=== PATIENT | female | born 1940 | race Caucasian/White ===

== ENCOUNTER 2017-04-13 09:24 | Emergency (ER) | payer MEDICARE, OTHER ==
--- NOTE | 2017-04-13 11:21 | RAD ---
INDICATION: Atraumatic left wrist and swelling COMPARISON: None TECHNIQUE: AP, lateral, and oblique views were obtained. FINDINGS: There is no acute bony change. There is advanced osteoarthritis about the first carpometacarpal articulation with deformity. There is minor radiocarpal osteoarthritis. There is underlying soft tissue swelling. IMPRESSION: ADVANCED OSTEOARTHRITIS FIRST CARPOMETACARPAL ARTICULATION. NO ACUTE BONY CHANGES. SOFT TISSUE SWELLING.
[2017-04-13 11:40] VITALS: BP 199/85
[2017-04-13] MEDS ORDERED: Ibuprofen TAB* 600 MG PO ONE (11:50)
--- NOTE | 2017-04-13 11:53 | UC ---
Janes Hernandez Thomas, [facility] on 04/13/17 at 1050 . Upper Extremity HPI - HPI Summary HPI Summary: The pt is a 76 y/o F presenting to [facility] c/o left wrist pain that began today when she woke at 03:00. The pain is described as a deep ache. It radiates to her fingers and the pain si rated 9/10. The pain is aggravated by palpation and movement. It is alleviated by nothing. The patient has treated the pain with nothing [employer]. She has a previous fracture of the right wrist but not the left. Pt additionally c/o left wrist swelling. PMHx: HTN, arthritis. SHx: former smoker, daily alcohol use. She is left-handed. MD Note: Left wrist pain. 160/98. VS Stable. Patient is on BP medication. Visit history is significant for arthritis. Nurses Note: Woke up at 3 am with left wrist pain. Did not fall or have an other injury. - History of Current Complaint Chief Complaint: UCUpperExtremity Stated Complaint: WRIST PAIN Time Seen by Provider: 04/13/17 10:42 Hx Obtained From: Patient Onset/Duration: Lasting Hours - sudden onset today at 03:00 when she woke, Still Present Pain Intensity: 9 Pain Scale Used: 0-10 Numeric Aggravating Factor(s): Movement - and palpation Alleviating Factor(s): Nothing Associated Signs And Symptoms: Positive: Swelling - to left wrist. Negative: Fever Related History: Dominant Hand Left - Allergies/Home Medications Allergies/Adverse Reactions: Allergies Allergy/AdvReac Type Severity Reaction Status Date / Time Amoxicillin Allergy Hives Verified 04/13/17 10:03 Ampicillin Allergy Hives Verified 04/13/17 10:03 PMH/Surg Hx/FS Hx/Imm Hx Previously Healthy: No - Arthritis Cardiovascular History: Hypertension - Surgical History Surgical History: Yes Surgery Procedure, Year, and Place: 2010 BILATERAL CATARACT SURGERY [facility]. 2007 RIGHT SHOULDER IMPLANT [facility]. 2000 RIGHT HAND TRIGGER FINGER [facility]. BIL[facility]. RIGHT FOOT - Family History Known Family History: Positive: Cardiac Disease, Hypertension - Social History Alcohol Use: Daily Alcohol Amount: 1-2 DRINKS PER DAY Substance Use Type: None Smoking Status (MU): Former Smoker Amount Used/How Often: 1 1/2 PPD X 5 YEARS When Did the Patient Quit Smoking/Using Tobacco: 1971 - Immunization History Most Recent Influenza Vaccination: 2011 Most Recent Tetanus Shot: 2009 Review of Systems Constitutional: Negative, Other - NEGATIVE: fever Skin: Negative Eyes: Negative ENT: Negative Respiratory: Negative Cardiovascular: Negative Gastrointestinal: Negative Genitourinary: Negative Motor: Negative Neurovascular: Negative Musculoskeletal: Other: - POS: left wrist pain onset this AM at 03:00, swelling to left wrist. Neurological: Negative Psychological: Negative All Other Systems Reviewed And Are Negative: Yes Physical Exam Triage Information Reviewed: Yes Vital Signs: Initial Vital Signs Temp 97.2 F 04/13/17 09:58 Pulse 79 04/13/17 09:58 Resp 22 04/13/17 09:58 BP 160/98 04/13/17 09:58 Pulse Ox 97 04/13/17 09:58 Vital Signs Reviewed: Yes - Additional Comments Appearance: The patient is well-appearing, is in no pain distress, and is well- nourished. Eyes: Conjunctiva are clear. ENT: The hearing is grossly normal, the pharynx is normal, and the TMs are normal. There is no muffled or hoarse voice. Neck: The neck is supple and nontender. Respiratory: The chest is nontender. The lungs are clear, there are normal breath sounds, and there is no respiratory distress. Cardiovascular: Heart is regular rate and rhythm. There is no murmur. Abdomen: The abdomen is soft and nontender. There is no organomegaly. Bowel sounds: present Musculoskeletal: THERE IS SWELLING OF THE STYLOID OF THE RADIUS WITH TENDERNESS. LIMITATION OF MOVEMENT. THE PATIENT CANNOT MAKE A FULL FIST. THE PATIENT CANNOT EXTEND ALL OF FINGERS, BUT THE INABILITY TO EXTEND THE THUMB IS CHRONIC. PALPATION OF THE AREA OF SWELLING AT THE BASE OF THE FIRST METACARPAL IN THE AREA OF THE STYLOID OF THE RADIUS IS EXQUISITELYTENDER BUT THERE IS NO EVIDENCE OF REDNESS. THE ELBOW AND UPPER ARM ARE WITHIN NORMAL LIMITS. Strength is intact. The patient moves all extremities. Neurological: The patient is alert. Psychological: The patient displays age appropriate behavior Skin: Negative for rashes. Diagnostics - Radiology Wrist XR Xray Interpretation: No Acute Changes - ADVANCED OSTEOARTHRITIS FIRST CARPOMETACARPAL ARTICULATION. NO ACUTE BONY CHANGES. SOFT TISSUE SWELLING. ED physician has read this report and agrees. Radiology Interpretation Completed By: Radiologist Re-Evaluation - Re-Evaluation Second Eval Re-Evaluation Time: 11:39 Change: Unchanged Comment: She reports that she has run out of Celebrex, and she would like a refill. Upper Extremity Course/Dx - Course Course Of Treatment: The patient is a 76 y/o F presenting to [facility] c/o L wrist pain that began this morning suddenly at 03:00. Medications have been included in the original chart and reviewed. Hypertensive BP reading with diagnosis of HTN. Wrist XR shows ADVANCED OSTEOARTHRITIS FIRST CARPOMETACARPAL ARTICULATION. NO ACUTE BONY CHANGES. SOFT TISSUE SWELLING. ED physician has read this report and agrees. - Differential Dx/Diagnosis Provider Diagnoses: Osteoarthritis, left wrist Discharge - Discharge Plan Condition: Stable Disposition: HOME Prescriptions: celeCOXIB CAP* [CeleBREX CAP*] 200 mg PO DAILY #60 cap Patient Education Materials: Arthritis (ED) Referrals: Antonella Amin MD [Primary Care Provider] - Additional Instructions: WE DISCUSSED: 1. The radiologist didn't see any broken bones. 2. You have arthritis that is acting up, possibly because you have not been on the Celebrex. 3. I have refilled your prescription. 4. Use splint, elevate; warm moist heat in the morning. Ice to area for acute pain. 5. See your doctor for follow up and further evaluation and treatment as needed. The documentation as recorded by the Janes de la torre Thomas accurately reflects the service I personally performed and the decisions made by me, Moy Mendiola MD.
== END 2017-04-13 11:55 | disposition home or self-care (01) ==
LOC: UCEAST 09:24
DX: M19.032 Primary osteoarthritis, left wrist (principal); I10 Essential (primary) hypertension; Z98.42 Cataract extraction status, left eye; Z98.41 Cataract extraction status, right eye; Z88.0 Allergy status to penicillin; Z87.891 Personal history of nicotine dependence
CPT/HCPCS: 99213; A9270-GY; G0463